=== PATIENT | male | born 1980 | race Caucasian/White ===

== ENCOUNTER → 2021-08-19 | Outpatient (CLI) | payer OTHER ==
--- NOTE | 2021-09-12 21:54 | PF ---
[address] [address] PULMONARY FUNCTION REPORT Name: SIXTOERNIE Room: [facility]#: [id number] Admission: 08/19/21 [facility]: Date of : 78 Report #: [id number] THIS REPORT FOR: cc: FAM - No family physician/PCP FAM - No family physician/PCP William Hdz MD ~ DATE OF VISIT: 08/19/2021 PULMONARY FUNCTION TEST The FEV1/FVC ratio is decreased to 61% with an FVC normal at 112%. The FEV1 is also normal at 86%. The FEF 25-75 is decreased to 45%. After the administration of a bronchodilator, there is no significant increase in any of these values. The patient's FEV1 is 3.49 liters. This does not increase after the administration of bronchodilators. The flow volume loop is concave upwards. Only a spirometry was performed. IMPRESSION: Mild obstruction without evidence of reversibility. <ELECTRONICALLY SIGNED> By: William Hdz MD 09/12/21 [id number] Hdz MD /nt
== END ==
LOC: M.PUL 09:35
PROVIDERS: ATTEND Chiropractor
DX: J98.8 Other specified respiratory disorders (principal); J45.998 Other asthma